=== PATIENT | female | born 1970 | race Caucasian/White ===

== ENCOUNTER 2025-02-27 10:18 | Outpatient (REF) | payer OTHER, SELFPAY ==
--- OUTSIDE RECORDS SUMMARY | 2025-02-28 10:40 | XMS_ITS | Patient Health Record ---
Author Organization [facility] Address [address] [place] [address] Care Team Providers Care Signal Technician Name Role Phone Benji Colunga MD Primary Care Provider MARY Robertson Unavailable [phone] Allergies Allergen (clinical drug ingredient) Drug/Non Drug Allergy documented on EMR Reaction Allergy Type Onset Date Status Latex LATEX (uncoded) Skin Rash Allergy Acti ve methylphenidate RITALIN RAPID HEARTRATE Drug Allergy Active Reason For Referral No Information Medications Medication SIG (Take, Route, Frequency, Duration) Notes Start Date End Date Status Clorazepate Dipotassium 7.5 MG 1 tablet at bedtime as needed Orally 1 in am, 2 at hs Active Multivitamin Active Sertraline HCl 50 MG 1 tablet Orally Onc e a day Active Biotin Active Social History Tobacco Use: Social History Observation Description Date Details (start date - stop date) Never Smoker NA - NA Tobacco Use/Smoking Question Answer Notes Are you a nonsmoker Alcohol Screen (Audit-C) Question Answer Notes Did you have a drink containing alcohol in the p ast year? No Points 0 Interpretation Negative Sexual History Question Answer Notes Had sex in the past 12 months (vaginal, oral, or anal)? 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) CONTRACEPTION: S/P BTL, NOVASURE, NO MENSES .CE: Smoking: Never a smoker Problems Problem Type SNOMED Code ICD Code Onset Dates Problem Status W/U Status Risk Notes Problem Postmenopausal bleeding (N95.0) Active confirmed Problem Leiomyoma of uterus (88249803) Leiomyoma of uterus, unspecified (D25.9) Active confirmed Problem 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) 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) Active confirmed Problem Gastro-esophage al reflux disease with esophagitis (168669921) Gastro-esophageal reflux disease with esophagitis (K21.0) Active confirmed Problem Family history of malignant neoplasm of breast (747763903) Family history of malignant neoplasm of breast (Z80.3) Active confirmed Problem Anxiety state (680933663) Anxiety state, unspecified (300.00) Active confirmed Major Plan Of Treatment Pending Test Test Name Order Date Ultrasound : Pelvic 04/20/2017 THIN PREP,HPV,DL IF HPV+ (>29YR)(SCRN) 04/20/2017 MM Digital Mammo Screening 04/20/2017 MM Digital Screening Mammogram 3D 2020 MM Digital Screening Mammogram 3D 2021 Insurance Providers Payer Name Payer Address Payer Phone Subscriber Number Group Number Insured Name Patient Relationship to Insured Coverage Start Date Coverage End Date [facility] [id number] [place] [phone] [id number] TOÑO JIM Self - patient is the insured Medical (General) History Medical History History ICD Code Anxiety disorder, unspecified F41.9 Gastro-esophageal reflux disease with es ophagitis Graves Disease Thyrotoxicosis with diffuse goiter witho ut thyrotoxic crisis or storm E05.00 Left lower quadrant abdominal swelling, mass and lump R19.04 Surgical History Surgery Date(Month/Year) novasure ablation 01/2005 BTL C/S lap band tonsillectomy radioactive iodine to thryoid stereotactic breast biopsies (left breast) - benign (ductal hyperplasia, dense stroma, sclerosing adenosis, cystice apocrine metaplasia) 09/2020 removal of gastric band 09/2022 Hospitalization History Reason Date(Month/Year) see surgical hx
== END 2025-02-27 10:19 | disposition home or self-care (01) ==
LOC: HO.HOSX 10:18
PROVIDERS: Visit Provider Orthopaedic Surgery
DX: Z13.89 Encounter for screening for other disorder (principal)

== ENCOUNTER 2025-03-20 08:08 | Outpatient (REF) | payer OTHER, SELFPAY | END 2025-03-20 08:09 | disposition home or self-care (01) | LOC: HO.HOSX 08:08 | PROVIDERS: Visit Provider Orthopaedic Surgery | DX: Z13.89 Encounter for screening for other disorder (principal) ==

== ENCOUNTER 2025-03-20 08:08 | Outpatient (AMB) | payer OTHER, SELFPAY ==
--- NOTE | 2025-03-20 08:13 | MHC.OFFVIS ---
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 States she had fallen while out on a walk with her , seen with [facility] where she was not happy with her care. States they took too long to offer surgery and feels she was too long in a cast. She attend P.T 3x a week where she feels more could have been done to help her improve ROM. Currently she is having tightness and tenderness. She is having difficulty lifting a gallon of work. At time she has numbness and tingling mainly at night time. She is here for a 2nd opinion. 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 She is S/P left distal radius ORIF, with a dorsal locking plate, done by Dr. Lira at [facility] in 01/2023. She feels there was a delay in her treatment & is unhappy with her care there. She says her plate was removed ~6 months after her initial surgery, likely due to difficulty with the extensor tendons & her hardware. She complains of limited left wrist & hand ROM, along with tenderness. She is frustrated that her left hand does not feel the same as her right one. She feels weakness & tightness extending from her fingers & MCP joints up to the muscle bellies of the dorsal forearm. She says she was attending PT 3x weekly following her surgery for ~6 months. She complains of being chronically sore all the time in her wrist, and she is concerned about excess scar tissue. 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 [facility] Medical History (Updated 03/20/25 @ 08:47 by Caesar Duval) Closed fracture of distal ends of radius and ulna, bilateral Social History (Updated 03/20/25 @ 08:21 by BEN Spann) Current occupational status: employed Current occupation: scheduler maintenance/rt hand Review of Systems Const All systems reviewed & are unremarkable except as noted in HPI and below Physical Exam Vital Signs: BMI result Body Mass Index 28.8 Const General: cooperative, healthy appearing and no acute distress Orientation/consciousness: patient oriented x3 HEENT Head: Yes normocephalic and Yes atraumatic Eyes EOM: EOMs intact bilaterally Resp Effort & Inspection: normal respiratory effort and able to speak in complete sentences Cardio Jugular venous distension: no JVD Skin General skin exam: turgor normal Rashes: no rashes Neuro General: patient oriented x3 Extrem Other: Evaluation of Left Upper Extremity: The patient is alert, oriented, and in no acute distress Neuro: Median, Ulnar, Radial nerves motor and sensory intact and sensation is normal to the tips of all digits Vascular: Cap refill brisk ROM: She can make a good and tight fist and extend all her digits. When she makes a tight fist and flexes her wrist she feels tightness extending up to the muscle bellies of the dorsal forearm. Fortunately, it looks like she has full range of motion of all of her fingers and thumb. Wrist ROM: Extension: ~45 degrees Flexion: ~ 45 degrees Full and symmetrical prono-supination DRUJ is nontender and stable No swelling about the wrist. The wrist is not tender to palpation. Skin: She has a healed longitudinal scar over the dorsal aspect of her left wrist. General: No Ecchymosis. No Erythema or evidence of infection. Psych Appearance: grossly normal Affect: normal affect Attitude: cooperative Assessment & Plan Assessment & Plan (1) Stiffness of left wrist joint: Code(s): M25.632 - Stiffness of left wrist, not elsewhere classified Category: Medical Plan Assessment & Plan: 1. Left wrist stiffness Hx of distal radius ORIF, and subsequent removal of dorsal locking plate done by Dr. Lira at [facility] in ~01/2023 I educated her about this condition I had a long conversation with her concerning the the fact that it looks like that she has gone on to heal well, that it looks like her recovery of range of motion is also gone on to do well. She can still work on wrist range of motion exercises and may still gets some improvement, but I explained that it will likely never be exactly like the right wrist but overall is quite good. She does not need any kind of operative intervention, as not no surgery would make anything any better. On the other hand, she has actually done quite well following her surgeries and therapy. I do not think she needs to obsess about all of the motions in all of her fingers and wrist and arm as much as perhaps she did in the beginning when her hand was reportedly quite stiff. I think now she can relax and maybe work on a little wrist range of motion and using her hand normally. I also do not think that she would benefit from any formal OT hand therapy. The patient agrees that she already knows all about how to do therapy for her wrist. I believe she is reassured. I told her I do not believe that we need to send her across the street to get the wrist radiographs as I believe that we covered all of the primary issues today. She can follow up prn Please note that greater than 45 minutes was spent with this patient going over the history, evaluating the patient and radiographs, formulating possible treatment options, discussing them with the patient, and documenting the visit. Scribed for Natalie Kay MD by Caesar Duval, medical review coordinator, on 03/20/25 at 8:30 AM, EST. Orders: Orders XR wrist LT min 3V Today M25.532 - Pain in left wrist Coding Level of Care Code New Pt Level 4 (39957) Diagnoses Stiffness of left wrist joint M25.632
[2025-03-20 08:22] VITALS: BMI 28.8
--- OUTSIDE RECORDS SUMMARY | 2025-03-20 08:23 | XMS_ITS | Patient Health Record ---
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) CONTRACEPTION: S/P BTL, NOVASURE, NO MENSES .CE: Smoking: Never a smoker Problems Problem Type SNOMED Code ICD Code Onset Dates Problem Status W/U Status Risk Notes Problem Postmenopausal bleeding (N95.0) Active confirmed Problem Leiomyoma of uterus (55394437) Leiomyoma of uterus, unspecified (D25.9) Active confirmed Problem Toxic diffuse goiter with no crisis (933937168) 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
== END 2025-03-20 09:17 | disposition home or self-care (01) ==
LOC: HO.HOS 08:09
PROVIDERS: Visit Provider Orthopaedic Surgery
DX: M25.632 Stiffness of left wrist, not elsewhere classified (principal)
CPT/HCPCS: 99204